=== PATIENT | female | born 1940 | race Caucasian/White ===

== ENCOUNTER 2017-12-28 17:10 | Emergency (ER) | payer MEDICARE ==
[2017-12-28 17:44] VITALS: BP 167/53
[2017-12-28] MEDS ORDERED: Acetaminophen TAB* 325 MG PO ONE (17:57)
--- NOTE | 2017-12-28 18:01 | UC ---
Nausea/Vomiting/Diarrhea HPI - HPI Summary HPI Summary: Patient complains of burning with urination, bilateral lower abdominal pain starting last night. Denies fever, cough, sore throat, CP, SOB, N/V/D, vaginal symptoms, back pain. Medical history is HTN, DM, hypothyroid. - History of Current Complaint Chief Complaint: UCGU Stated Complaint: BLADDER PAIN Time Seen by Provider: 12/28/17 17:50 Hx Obtained From: Patient Onset/Duration: Gradual Onset Severity Initially: Moderate Severity Currently: Moderate Pain Intensity: 8 Pain Scale Used: 0-10 Numeric Location: Discrete At: RLQ, Discrete At: LLQ, Suprapubic Character: Dull Aggravating Factor(s): Nothing Alleviating Factor(s): Nothing Nausea/Vomiting Presence: None Diarrhea Presence: No - Allergies/Home Medications Allergies/Adverse Reactions: Allergies Allergy/AdvReac Type Severity Reaction Status Date / Time Penicillins Allergy Hives Verified 12/28/17 17:45 propoxyphene [From Darvon] Allergy Hives Verified 12/28/17 17:45 tape Allergy Rash Uncoded 12/28/17 17:45 Home Medications: Home Medications Insulin ISOPH/REG 70/30 (*) [HumuLIN 70/30 (*)] 0 units SUBCUT 0800,1700 [History Confirmed 12/28/17] Levothyroxine TAB* [Synthroid TAB*] 75 mcg PO 0800 12/28/17 [History Confirmed 12/28/17] Losartan/Hydrochlorothiazide [Losartan Potassium/Hydroc 100-25 mg] 1 tab PO DAILY 12/28/17 [History Confirmed 12/28/17] Multivitamin [Multivitamins] 1 cap PO DAILY 12/28/17 [History Confirmed 12/28/17 ] amLODIPine TAB* [Norvasc 5 mg TAB*] 10 mg PO DAILY 12/28/17 [History Confirmed 12/28/17] PMH/Surg Hx/FS Hx/Imm Hx Previously Healthy: Yes Endocrine History: Diabetes, Thyroid Disease, Hypothyroidism - Surgical History Surgical History: Yes Surgery Procedure, Year, and Place: titanium plate in neck - Family History Known Family History: Positive: None - Social History Alcohol Use: None Substance Use Type: None Smoking Status (MU): Never Smoked Tobacco Review of Systems Constitutional: Chills Skin: Negative Eyes: Negative ENT: Negative Respiratory: Negative Cardiovascular: Negative Gastrointestinal: Abdominal Pain Genitourinary: Dysuria Motor: Negative Neurovascular: Negative Musculoskeletal: Negative Neurological: Headache Psychological: Negative Is Patient Immunocompromised?: No All Other Systems Reviewed And Are Negative: Yes Physical Exam - Summary Physical Exam Summary: Tenderness to palpation in lower abdomen bilateral laterally and suprapubically. Abdominal exam otherwise unremarkable. Triage Information Reviewed: Yes Appearance: Well-Appearing Vital Signs: Initial Vital Signs Temp 97.8 F 12/28/17 17:39 Pulse 78 12/28/17 17:39 Resp 16 12/28/17 17:39 BP 167/53 12/28/17 17:39 Pulse Ox 96 12/28/17 17:39 Vital Signs Reviewed: Yes Eye Exam: Normal Neck exam: Normal Respiratory Exam: Normal Cardiovascular Exam: Normal Abdominal Exam: Normal Musculoskeletal Exam: Normal Neurological Exam: Normal Psychological Exam: Normal Skin Exam: Normal Naus/Vom/Diarrhea Course/Dx - Course Course Of Treatment: Patient complains of burning with urination, bilateral lower abdominal pain starting last night. Denies fever, cough, sore throat, CP , SOB, N/V/D, vaginal symptoms, back pain. Medical history is HTN, DM, hypothyroid. Tenderness to palpation in lower abdomen bilateral laterally and suprapubically. Abdominal exam otherwise unremarkable. Vital signs normal. UA not definitive. Symptomatic UTI. Started on Bactrim here in [facility]. Rx for same - Differential Dx/Diagnosis Provider Diagnoses: uti Is Visit Related: No Condition At Discharge: Stable Discharge - Sign-Out/Discharge Documenting (check all that apply): Patient Departure All imaging exams completed and their final reports reviewed: No Studies - Discharge Plan Condition: Stable Disposition: HOME Prescriptions: Ciprofloxacin HCl [Cipro] 500 mg PO BID 10 Days #20 tablet Patient Education Materials: Urinary Tract Infection in Women (DC) Referrals: Diaz Stokes MD [Primary Care Provider] - Additional Instructions: Take antibiotics as directed. Follow-up with primary care. - Billing Disposition and Condition Condition: STABLE Disposition: Home - Attestation Statements Provider Attestation: Per institutional requirements, I have reviewed the chart, however, I was not consulted specifically or made aware of this patient by the midlevel provider. I did not personally evaluate, interact with , or disposition this patient.
[2017-12-28] MEDS ORDERED: Ciprofloxacin TAB* 500 MG PO ONE (18:17)
== END 2017-12-28 18:28 | disposition home or self-care (01) ==
LOC: UCEAST 17:10
DX: N39.0 Urinary tract infection, site not specified (principal); E11.9 Type 2 diabetes mellitus without complications; Z79.4 Long term (current) use of insulin; E03.9 Hypothyroidism, unspecified; Z88.5 Allergy status to narcotic agent; Z88.0 Allergy status to penicillin; Z91.048 Other nonmedicinal substance allergy status
CPT/HCPCS: 81003; 87077; 87086; 99212; A9270-GY; G0463

== ENCOUNTER 2018-12-30 08:53 | Inpatient (IN) | payer MEDICARE ==
--- OUTSIDE RECORDS SUMMARY | 2018-12-30 09:07 | XMS REPORT | Summary of Care ---
:1940 Author Organization [facility] Address [address] [facility] [place] [address] Care Team Providers Name Role Phone Diaz Stokes MD Primary Care Provider Rashid Francois MD Primary Lithograph Press Feeder/Java Developer With Security Clearance Theodore Lomeli MD Unavailable Tonja De La Vega Unavailable Reason for Visit Reason Comments Urinary Tract Infection pt presents for possible UTI, started sun/mon, discolored, dark yellow with odor, no burning, no frequency. Cough pt presents for cough since last thursday, is weak and chills. possible fever. Encounter Details Date Type Department Care Team Description 12/21/2018 Office Visit [facility] Jay Velazquez MD Cough (Primary Dx); Practice [address] [facility] Fever, unspecified fever cause [address] [place] [address] [place] [address] [phone] Allergies Active Allergy Reactions Severity Noted Date Comments Clarithromycin Other 05/07/2009 Tongue swelling and mouth sores. Demerol Hives 12/06/2014 Atorvastatin Calcium Other 09/15/2005 MUSCLE PROBLEMS Opioid Analgesics 07/08/2004 Penicillins 07/08/2004 Tegaderm Other 09/15/2005 ITCHING Tricor Other Medium 04/02/2007 myalgias Hydrocodone-Acetaminophen GI Reaction 09/15/2005 STOMACH ACHE documented as of this encounter (statuses as of 12/21/2018) Medications Medication Sig Dispensed Refills Start Date End Date Status daily vitamin PO TABS Take 1 Tab by 0 Active mouth DAILY. meclizine (ANTIVERT) 25 Take 1 Tab by 50 Tab 1 10/13/2017 Active MG Oral TabIndications: mouth THREE TIMES Benign paroxysmal DAILY NEEDED positional vertigo, for unspecified laterality dizziness/vertigo . loratadine (CLARITIN) Take 10 mg by 0 Active 10 MG Oral Tab mouth DAILY. Glucose Blood (ONE 1 Strip by In 200 Strip 5 09/24/2018 Active TOUCH ULTRA TEST Vitro route TWICE STRIPS) In Vitro Strip DAILY. NPH insulin, Inject 81 Units 3 Vial 5 09/28/2018 Active INTERMEDIATE - Acting, beneath the skin (HUMULIN N) 100 UNIT/ML DIRECTED. 45 Subcutaneous units in am and SuspensionIndications: 36 in pm Type 2 diabetes mellitus without complication, without long-term current use of insulin ([facility]) REGULAR insulin, Inject 16 Units 3 Vial 3 09/28/2018 Active SHORT-Acting, (HUMULIN beneath the skin R) 100 UNIT/ML TWO TIMES DAILY Injection BEFORE MEALS. SolutionIndications: Type 2 diabetes mellitus without complication, without long-term current use of insulin ([facility]) metFORMIN (GLUCOPHAGE) Take 1 Tab by 60 Tab 5 09/28/2018 Active 500 MG Oral mouth TWICE TabIndications: Type 2 DAILY. diabetes mellitus without complication, without long-term current use of insulin ([facility]) pravastatin (PRAVACHOL) Take 40 mg by 90 Tab 3 09/28/2018 Active 40 MG Oral mouth DAILY. TabIndications: Mixed hyperlipidemia metoprolol succinate Take 1 Tab by 90 Tab 3 09/28/2018 Active (TOPROL XL) 50 MG Oral mouth DAILY. Take TABLET SR 24 1 tab daily HRIndications: Essential hypertension, benign amLodipine (NORVASC) 10 Take 1 Tab by 90 Tab 3 09/28/2018 Active MG Oral TabIndications: mouth DAILY. Essential hypertension, benign Losartan Potassium-HCTZ Take 1 Tab by 90 Tab 3 10/12/2018 Active 100-25 MG Oral Tab mouth DAILY. levothyroxine Take 1 Tab by 90 Tab 3 10/12/2018 Active (SYNTHROID) 75 MCG Oral mouth BEFORE Tab BREAKFAST. Insulin Syringe-Needle 1 Device by 200 Each 5 10/29/2018 Active U-100 (RELION INSULIN Injection route SYRINGE) 31G X 15/64" 1 THREE TIMES ML Does not apply Misc DAILY. levofloxacin (LEVAQUIN) Take 1 Tab by 7 Tab 0 12/21/2018 Active 500 MG Oral Tab mouth DAILY 0700 on Empty Stomach. documented as of this encounter (statuses as of 12/21/2018) Active Problems Problem Noted Date Poorly controlled diabetes mellitus 08/19/2018 Diabetes mellitus due to underlying condition with hyperosmolarity without coma, without long-term current use of insulin Tear of right rotator cuff 04/04/2016 Pain in right upper arm 02/18/2016 Ankle pain, right 05/19/2013 Osteopenia 04/15/2011 Overview: Bone density scan positive left hip 2007 Bone density scan osteopenia 2011 Osteoarthritis 05/27/2007 Overview: Bilateral hands Hypothyroidism 05/27/2007 Carpal tunnel syndrome 05/27/2007 Overview: bilateral Spinal stenosis in cervical region 05/27/2007 Overview: MRI 11/30/2003 cervical spine limited because of a metallic artifact. There is definite evidence of cord compression. Central spinal canal stenosis is possible with possible central canal impingment. Irritable bowel syndrome 05/27/2007 non cardiac chest pain 05/27/2007 Overview: False positive stress echocardiogram 2005 and normal cardiac cath 2005 Obesity 05/27/2007 Overview: This patient's BMI has been calculated and is above average, and BMI management plan is completed. General patient education discussion including: weight loss link to reduction of risk factors for cardiac and other diseases Hemorrhoids, internal 05/27/2007 Diabetes mellitus 04/02/2007 Overview: Insulin dependent with dietary noncompliance. Seeing Dr. Gracia on humulin N and R She has yearly eye exam with Dr. Francois Essential hypertension, benign 04/02/2007 Mixed hyperlipidemia 04/02/2007 documented as of this encounter (statuses as of 12/21/2018) Immunizations Name Administration Dates Next Due PNEUMOCOCCAL POLYSACCHARIDE VACCINE 01/08/2007 documented as of this encounter Social History Tobacco Use Types Packs/Day Years Used Date Never Smoker Smokeless Tobacco: Never Used Alcohol Use Drinks/Week oz/Week Comments No 0 Standard drinks or equivalent 0.0 Social Isolation Answer Date Recorded In a typical week, how many times do you Three times a week 08/02/2018 talk on the phone with family, friends, or neighbors? How often do you get together with friends Three times a week 08/02/2018 or relatives? How often do you attend rastafarian or sikhism More than 4 times per year 2018 services? Do you belong to any clubs or organizations Yes 08/02/2018 such as rastafarian groups, unions, fraternal or athletic groups, or school groups? How often do you attend meetings of the 1 to 4 times per year 08/02/2018 clubs or organizations you belong to? Are you now , , , 08/02/2018 , never or living with a partner? Physical Activity Answer Date Recorded On average, how many days per week do you engage in moderate to 0 days 2018 strenuous exercise (like walking fast, running, jogging, dancing, swimming, biking, or other activities that cause a light or heavy sweat)? On average, how many minutes do you engage in exercise at this 0 min 2018 level? Stress Answer Date Recorded Do you feel stress - tense, restless, nervous, or anxious, Not at all 2018 or unable to sleep at night because your mind is troubled all the time - these days? Financial Resource Strain Answer Date Recorded How hard is it for you to pay for the very basics like Not hard at all 2018 food, housing, medical care, and heating? Intimate Partner Violence Answer Date Recorded Within the last year, have you been afraid of your partner or No 08/02/2018 ex-partner? Within the last year, have you been humiliated or emotionally No 08/02/2018 abused in other ways by your partner or ex-partner? Within the last year, have you been kicked, hit, slapped, or No 08/02/2018 otherwise physically hurt by your partner or ex-partner? Within the last year, have you been raped or forced to have any No 08/02/2018 kind of sexual activity by your partner or ex-partner? Food Insecurity Answer Date Recorded Within the past 12 months, you worried that your food would Never true 2018 run out before you got money to buy more. Within the past 12 months, the food you bought just didn't Never true 2018 last and you didn't have money to get more. Transportation Needs Answer Date Recorded In the past 12 months, has lack of transportation kept you from No 08/02/2018 medical appointments or from getting medications? In the past 12 months, has lack of transportation kept you from No 08/02/2018 meetings, work, or getting things needed for daily living? Sex Assigned at Date Recorded Not on file Job Start Date Occupation Industry Not on file Not on file Not on file Travel History Travel Start Travel End No recent travel history available. documented as of this encounter Last Filed Vital Signs Vital Sign Reading Time Taken Comments Blood Pressure 110/58 12/21/2018 3:55 PM EDT Pulse 70 12/21/2018 3:55 PM EDT Temperature 37.9 12/21/2018 3:55 PM C (100.2 EDT F) Respiratory Rate - - Oxygen Saturation 99% 12/21/2018 3:55 PM EDT Inhaled Oxygen Concentration - - Weight 85.9 kg (189 lb 6.4 oz) 12/21/2018 3:55 PM EDT Height 162.6 cm (5' 4") 12/21/2018 3:55 PM EDT Body Mass Index 32.51 12/21/2018 3:55 PM EDT documented in this encounter Progress Notes Jay Velazquez MD - 12/21/2018 3:40 PM EDT PATIENT: Madhuri Mcallister : 1940 DATE OF SERVICE: 12/21/2018 CHIEF COMPLAINT: Chief Complaint Patient presents with Urinary Tract Infection pt presents for possible UTI, started thu/mon, discolored, dark yellow with odor, no burning, no frequency. Cough pt presents for cough since last thursday, is weak and chills. possible fever. Subjective HISTORY OF PRESENT ILLNESS: Madhuri Mcallister is a 78-y.o. female. Began not feeling well 5 days ago. Began with cough, PND, clear mucus , head congested, cough also clear. Fever 2 days later, chilled Urine symptoms began about same time as the fever , darker despite drinking a lot. No dysuria , nofrequency, some back pain , no nausea. Past Medical History: Diagnosis Date Carpal tunnel syndrome 05/27/2007 bilateral Diabetes mellitus (HCC) Hemorrhoids, internal 05/27/2007 Hypertension Hypothyroidism 05/27/2007 Irritable bowel syndrome 05/27/2007 non cardiac chest pain 05/27/2007 Obesity 05/27/2007 Osteoarthritis 05/27/2007 Bilateral hands Postmenopausal Special screening for malignant neoplasms, colon 06/10/2004 colonoscopy - polyp excision, internal hemorrhoids Spinal stenosis in cervical region 05/27/2007 MRI 11/30/2003 cervical spine limited because of a metallic artifact. There is definite evidence of cord compression. Central spinal canal stenosis is possible with possible central canal impingment. Family History Problem Relation Age of Onset Heart Mother No Known Problems Sister No Known Problems Daughter No Known Problems Sister Lung Cancer Brother No Known Problems Brother No Known Problems Son Other Medical Illness Son Leg amputation from MVA Current Outpatient Medications Medication Sig amLodipine (NORVASC) 10 MG Oral Tab Take 1 Tab by mouth DAILY. daily vitamin PO TABS Take 1 Tab by mouth DAILY. Glucose Blood (ONE TOUCH ULTRA TEST STRIPS) In Vitro Strip 1 Strip by In Vitro route TWICE DAILY. Insulin Syringe-Needle U-100 (RELION INSULIN SYRINGE) 31G X 15/64" 1 ML Does not apply Misc 1Device by Injection route THREE TIMES DAILY. levothyroxine (SYNTHROID) 75 MCG Oral Tab Take 1 Tab by mouth BEFORE BREAKFAST. loratadine (CLARITIN) 10 MG Oral Tab Take 10 mg by mouth DAILY. Losartan Potassium-HCTZ 100-25 MG Oral Tab Take 1 Tab by mouth DAILY. meclizine (ANTIVERT) 25 MG Oral Tab Take 1 Tab by mouth THREE TIMES DAILY NEEDED for dizziness/vertigo. metFORMIN (GLUCOPHAGE) 500 MG Oral Tab Take 1 Tab by mouth TWICE DAILY. metoprolol succinate (TOPROL XL) 50 MG Oral TABLET SR 24 HR Take 1 Tab by mouth DAILY. Take 1tab daily NPH insulin, INTERMEDIATE - Acting, (HUMULIN N) 100 UNIT/ML Subcutaneous Suspension Inject 81Units beneath the skin DIRECTED. 45 units in am and 36 in pm pravastatin (PRAVACHOL) 40 MG Oral Tab Take 40 mg by mouth DAILY. REGULAR insulin, SHORT-Acting, (HUMULIN R) 100 UNIT/ML Injection Solution Inject 16 Units beneath the skin TWO TIMES DAILY BEFORE MEALS. No current facility-administered medications for this visit. Allergies Allergen Reactions Tricor Other myalgias Biaxin [Clarithromycin] Other Tongue swelling and mouth sores. Demerol Hives Lipitor [Atorvastatin Calcium] Other MUSCLE PROBLEMS Opioid Analgesics Pcn [Penicillins] Tape [Tegaderm] Other ITCHING Vicodin [Hydrocodone-Acetaminophen] GI Reaction STOMACH ACHE Social History Socioeconomic History Marital status: Spouse name: Not on file Number of children: 3 Years of education: Not on file Highest education level: Not on file Occupational History Not on file Social Needs Financial resource strain: Not hard at all Food insecurity: Worry: Never true Inability: Never true Transportation needs: Medical: No Non-medical: No Tobacco Use Smoking status: Never Smoker Smokeless tobacco: Never Used Substance and Sexual Activity Alcohol use: No Alcohol/week: 0.0 standard drinks Drug use: No Sexual activity: Never Lifestyle Physical activity: Days per week: 0 days Minutes per session: 0 min Stress: Not at all Relationships Social connections: Talks on phone: Three times a week Gets together: Three times a week Attends sikhism service: More than 4 times per year Active member of club or organization: Yes Attends meetings of clubs or organizations: 1 to 4 times per year Relationship status: Intimate partner violence: Fear of current or ex partner: No Emotionally abused: No Physically abused: No Forced sexual activity: No Other Topics Concern Back Care Not Asked Bike Helmet Not Asked Blood Transfusions Not Asked Caffeine Concern Not Asked Exercise Yes Comment: had been walking twice a day, 7 days/week until she hurt left foot. Hobby Hazards Not Asked International Travel No Service Not Asked Occupational Exposure Not Asked Seat Belt Yes Self-Exams Not Asked Sleep Concern Not Asked Special Diet Yes Comment: 3 meals per day, two snacks per day, low carbo and low sodium. Stress Concern No Weight Concern Yes Social History Narrative DOES NOT WORK LIVES WITH IN [facility] No regular physical activity 3 adult children, 1 son at age 16 REVIEW OF SYSTEMS: ROS Objective PHYSICAL EXAM: VITALS: BP 110/58 (BP Location: Left arm, Patient Position: Sitting) | Pulse 70 | Temp 100.2 F (37.9 C) | Ht 5' 4" (1.626 m) | Wt 189 lb 6.4 oz ( 85.9 kg) | SpO2 99% | BMI 32.51 kg/mBody mass index is 32.51 kg/m. Physical Exam Constitutional: No distress (in a wheelchair). In a wheelchair HENT: Mouth/Throat: Oropharynx is clear and moist. Neck: Neck supple. Cardiovascular: Normal rate and regular rhythm. Pulmonary/Chest: Effort normal and breath sounds normal. No respiratory distress. Musculoskeletal: She exhibits no edema. No cva tenderness Lymphadenopathy: She has no cervical adenopathy. Vitals reviewed. CXR negative to me UA no sign infection ASSESSMENT / IMPRESSION: ICD-9-CM ICD-10-CM 1. Cough 786.2 R05 2. Fever, unspecified fever cause 780.60 R50.9 XR CHEST 2 VIEW PA AND LATERAL ( STANDARD) CBC WITH DIFFERENTIAL COMPREHENSIVE METABOLIC PANEL Cough with fever 5 days is more than a cold but no source Will treat with levaquin and check labs Plan Call if not better Author: Jay Velazquez MD 12/21/2018 16:09 documented in this encounter Plan of Treatment Date Type Specialty Care Team Description 01/17/2019 Lab Internal Medicine 01/25/2019 Office Visit Family Practice Tonja De La Vega, SIL [address] [place] [address] [phone] 08/10/2019 Chronic Care Management Family Practice Name Type Priority Associated Diagnoses Date/Time XR CHEST 2 VIEW PA AND Imaging Routine Fever, unspecified 12/21/2018 4:35 PM LATERAL (STANDARD) fever cause EDT CBC WITH DIFFERENTIAL Lab Routine Fever, unspecified 12/21/2018 4:24 PM fever cause EDT COMPREHENSIVE METABOLIC Lab Routine Fever, unspecified 12/21/2018 4:24 PM PANEL fever cause EDT Name Type Priority Associated Diagnoses Order Schedule XR CHEST 2 VIEW PA Imaging Routine Fever, unspecified fever Expected: 12/21, AND LATERAL cause Expires: 12/21/2019 (STANDARD) Health Maintenance Due Date Last Done Comments ZOSTER IMMUNIZATION SERIES 02/25/1992 (1 of 2) PNEUMOCOCCAL 65+YRS (1 of 2 01/09/2008 01/08/2007 - PCV13) HEMOGLOBIN A1C 12/26/2018 09/25/2018, 06/25/2018, 10/29/2017, Additional history exists Diabetic Eye Exam 05/20/2019 05/20/2018, 11/16/2017, 11/13/2016, Additional history exists DEPRESSION SCREENING 08/03/2019 08/02/2018, 07/15/2017 FALL RISK ASSESSMENT 08/03/2019 08/02/2018, 08/02/2018 MEDICARE ANNUAL WELLNESS 08/03/2019 08/02/2018, 07/15/2017, VISIT 08/15/2011 COLONOSCOPY SCREENING 08/12/2019 08/11/2014, 08/11/2014, 07/04/2014, Additional history exists FOOT EXAM 09/29/2019 09/28/2018, 09/28/2018, 09/08/2017, Additional history exists OSTEOPOROSIS SCREENING 08/18/2021 08/19/2011, 10/19/2007 HPV IMMUNIZATION SERIES Aged Out No longer eligible based on patient's age to complete this topic MENINGOCOCCAL VACCINE IMM Aged Out No longer eligible based on patient's age to complete this topic documented as of this encounter Goals Goal Patient Goal Associated Recent Patient-Stated? Author Type Problems Progress Blood Pressure Blood Pressure 110/58 No Ceferino, < 140/90 (12/21/2018 SIL Evangelista 3:55 PM EDT) Note: This is an individualized treatment (blood pressure) goal for Madhuri Mcallister: Displayed above (on the left) is your goal for blood pressure control. Your most recent blood pressure is also shown above, on the right. You should try to achieve blood pressures that are lower than your goal listed above (on the left). Glycohemoglobin A1c < 7.0 Diabetes 8.2 (09/25/2018 11:01 No Tonja De La Vega FNP AM EDT) Note: This is an individualized treatment (diabetes control, HgbA1C) goal for Madhuri Mcallister: Displayed above is your progress towards your HgbA1C goal. Your goal is shown above (on the left); your most recent HgbA1C is shown on the right. Note that lower numbers are better. Weight loss vs. 18 mo Lifestyle 5.6 (12/21/2018 3:55 PM No Tonja De La Vega FNP max (lbs) >= 10 EDT) Note: This is an individualized lifestyle goal for Madhuri Mcallister: Your body mass index (BMI) is more than 30. You should lose weight. A reasonable starting goal is to lose 10 pounds. Displayed above is how many pounds you have lost thus far towards your 10 pound weight loss goal. Keep immunizations current Lifestyle No Tonja De La Vega FNP Note: This is an individualized lifestyle goal for Madhuri L Riihinen: Please be sure to keep up-to-date on recommended immunizations. For example, this would include a yearly influenza vaccine. Immunization status can be seen by looking at the Health Maintenance sections of your [facility], Plan of Care, and any After Visit Summaries. Take all prescribed medications as Self-management No Tonja De La Vega FNP directed Note: This is an individualized self-management goal for Madhuri Mcallister: Please take all prescribed medications as directed. 1. Do not skip doses. If you cannot afford your medications, talk with your doctor. 2. Use a pill reminder system such as a pill box if needed. Your pharmacist can help you with this. 3. Contact your Pharmacy 5 days before your medication runs out. If you cannot take your medications for any reasons, talk with your doctor. 4. Please bring all of your medication bottles and inhalers (or a list of all your medications/inhalers) with you to every visit. Potential barriers to meeting all of your care plan goals will continue to be addressed on an ongoing basis. documented as of this encounter Results Not on filedocumented in this encounter Visit Diagnoses Diagnosis Cough - Primary Fever, unspecified fever cause documented in this encounter Insurance Payer Benefit Plan / Subscriber ID Effective Dates Phone Address Type Group UHC MEDICARE [employer] xxxxxxxxx 2011-Present [facility] ADVANTAGE MEDICARE ADVANTAGE Guarantor Name Account Type Relation to Date of Phone Billing Patient Address Madhuri Mcallister Personal/Family 1940 [address] (Home) [place] [phone] [id number] (Work) documented as of this encounter
--- OUTSIDE RECORDS SUMMARY | 2018-12-30 09:07 | XMS REPORT | Summary of Care ---
:1940 Author Organization [facility] Address [address] [place] [address] Care Team Providers Name Role Phone Diaz Stokes MD Primary Care Provider Rashid Francois MD Primary Receptionist Scheduler/Medical Information Officer Theodore Lomeli MD Unavailable Tonja De La Vega SPECIAL NEEDS NANNY Unavailable Reason for Visit Reason Comments Check Up pt said she is very weak, pt is also having SOB Encounter Details Date Type Department Care Team Description 12/30/2018 Office Visit [facility] Tonja De La Vega Weakness (Primary Dx); Practice SPECIAL NEEDS NANNY Abnormal liver function; [address] Diabetes mellitus without complication (HCC); [place] [address] [place] [address] Essential hypertension, benign [phone] Allergies Active Allergy Reactions Severity Noted Date Comments Clarithromycin Other 05/07/2009 Tongue swelling and mouth sores. Demerol Hives 12/06/2014 Atorvastatin Calcium Other 09/15/2005 MUSCLE PROBLEMS Opioid Analgesics 07/08/2004 Penicillins 07/08/2004 Tegaderm Other 09/15/2005 ITCHING Tricor Other Medium 04/02/2007 myalgias Hydrocodone-Acetaminophen GI Reaction 09/15/2005 STOMACH ACHE documented as of this encounter (statuses as of 12/30/2018) Medications Medication Sig Dispensed Refills Start Date End Date Status daily vitamin PO Take 1 Tab by 0 Active TABS mouth DAILY. meclizine (ANTIVERT) Take 1 Tab by 50 Tab 1 10/13/2017 Active 25 MG Oral mouth THREE TabIndications: TIMES DAILY Benign paroxysmal NEEDED for positional vertigo, dizziness/verti unspecified go. laterality loratadine Take 10 mg by 0 Active (CLARITIN) 10 MG mouth DAILY. Oral Tab Glucose Blood (ONE 1 Strip by In 200 Strip 5 09/24/2018 Active TOUCH ULTRA TEST Vitro route STRIPS) In Vitro TWICE DAILY. Strip NPH insulin, Inject 81 Units 3 Vial 5 09/28/2018 Active INTERMEDIATE - beneath the Acting, (HUMULIN N) skin 100 UNIT/ML DIRECTED. 45 Subcutaneous units in am and SuspensionIndication 36 in pm s: Type 2 diabetes mellitus without complication, without long-term current use of insulin (HCC) REGULAR insulin, Inject 16 Units 3 Vial 3 09/28/2018 Active SHORT-Acting, beneath the (HUMULIN R) 100 skin TWO TIMES UNIT/ML Injection DAILY BEFORE SolutionIndications: MEALS. Type 2 diabetes mellitus without complication, without long-term current use of insulin ([facility]) metFORMIN Take 1 Tab by 60 Tab 5 09/28/2018 Active (GLUCOPHAGE) 500 MG mouth TWICE Oral TabIndications: DAILY. Type 2 diabetes mellitus without complication, without long-term current use of insulin (HCC) pravastatin Take 40 mg by 90 Tab 3 09/28/2018 Active (PRAVACHOL) 40 MG mouth DAILY. Oral TabIndications: Mixed hyperlipidemia metoprolol succinate Take 1 Tab by 90 Tab 3 09/28/2018 Active (TOPROL XL) 50 MG mouth DAILY. Oral TABLET SR 24 Take 1 tab HRIndications: daily Essential hypertension, benign amLodipine (NORVASC) Take 1 Tab by 90 Tab 3 09/28/2018 Active 10 MG Oral mouth DAILY. TabIndications: Essential hypertension, benign Losartan Take 1 Tab by 90 Tab 3 10/12/2018 Active Potassium-HCTZ mouth DAILY. 100-25 MG Oral Tab levothyroxine Take 1 Tab by 90 Tab 3 10/12/2018 Active (SYNTHROID) 75 MCG mouth BEFORE Oral Tab BREAKFAST. Insulin 1 Device by 200 Each 5 10/29/2018 Active Syringe-Needle U-100 Injection route (RELION INSULIN THREE TIMES SYRINGE) 31G X DAILY. " 1 ML Does not apply Misc levofloxacin Take 1 Tab by 7 Tab 0 12/21/2018 Discontinued (LEVAQUIN) 500 MG mouth DAILY 9 Oral Tab 0700 on Empty Stomach. documented as of this encounter (statuses as of 12/30/2018) Active Problems Problem Noted Date Poorly controlled diabetes mellitus 08/19/2018 Diabetes mellitus due to underlying condition with hyperosmolarity without coma, without long-term current use of insulin Tear of right rotator cuff 04/04/2016 Pain in right upper arm 02/18/2016 Ankle pain, right 05/19/2013 Osteopenia 04/15/2011 Overview: Bone density scan positive left hip 2007 Bone density scan osteopenia 2012 Osteoarthritis 05/27/2007 Overview: Bilateral hands Hypothyroidism 05/27/2007 [...] as of this encounter (statuses as of 12/30/2018) Immunizations Name Administration Dates Next Due PNEUMOCOCCAL [...] or relatives? How often do you attend christianity or synagogue More than 4 times per year 2018 services? Do you belong to any clubs or organizations Yes 08/02/2018 such as christianity groups, unions, fraternal or athletic groups, or [...] Sign Reading Time Taken Comments Blood Pressure 132/46 12/30/2018 7:41 AM EDT Pulse 65 12/30/2018 7:41 AM EDT Temperature 36.4 12/30/2018 7:41 AM EDT C (97.6 F) Respiratory Rate - - Oxygen Saturation 98% 12/30/2018 7:41 AM EDT Inhaled Oxygen Concentration - - Weight 86.2 kg (190 lb) 12/30/2018 7:41 AM EDT Height 162.6 cm (5' 4") 12/30/2018 7:41 AM EDT Body Mass Index 32.61 12/30/2018 7:41 AM EDT documented in this encounter Patient Instructions Patient InstructionsTonja De La Vega FNP - 12/30/2018 7:40 AM EDTStop pravastatin for now Stop levaquin antibiotic No motrin for now. To ER for evaluation and lab work and testing as to why extreme sudden weakness. documented in this encounter Progress Notes Tonja De La Vega FNP - 12/30/2018 7:40 AM EDT PATIENT: Madhuri Mcallister : 1940 DATE OF SERVICE: 12/30/2018 Chief Complaint Patient presents with Check Up pt said she is very weak, pt is also having SOB SUBJECTIVE: Madhuri Mcallister is a 78-y.o. female who is here with extreme sudden weakness over last 3-4 days. She is unable to walk and go up stairs and fears falling. She thought it was due to takinglevaquin for UTI. She took for 3 days and stopped but weakness worsening. She had recent lab work showing drop and H&H and abnormal liver function. She takes motrin but only occasionally. Previous hematocrit 42 and now 35. She sees Dr. Gracia for diabetes. No fingerstick today. Yesterday was 220. The patient is taking hypertensive medications compliantly without side effects. Denies chest pain,worsened edema, or TIA's. No dizziness. No palpitations. The patient denies abdominal or flank pain, anorexia, nausea or vomiting, dysphagia, change in bowelhabits or black or bloody stools or weight loss. Patient Active Problem List Diagnosis Date Noted Poorly controlled diabetes mellitus ([facility]) 08/19/2018 Diabetes mellitus due to underlying condition with hyperosmolarity without coma, without long-term current use of insulin ([facility]) 08/19/2018 Tear of right rotator cuff 04/04/2016 Pain in right upper arm 02/18/2016 Ankle pain, right 05/19/2013 Osteopenia 04/15/2011 Bone density scan positive left hip 2007 Bone density scan osteopenia 2011 Osteoarthritis 05/27/2007 Bilateral hands Hypothyroidism 05/27/2007 Carpal tunnel syndrome 05/27/2007 bilateral Spinal stenosis in cervical region 05/27/2007 MRI 11/30/2003 cervical spine limited because of a metallic artifact. There is definite evidence of cord compression. Central spinal canal stenosis is possible with possible central canal impingment. Irritable bowel syndrome 05/27/2007 non cardiac chest pain 05/27/2007 False positive stress echocardiogram 2005 and normal cardiac cath 2006 Obesity 05/27/2007 This patient's BMI has been calculated and is above average, and BMI management plan is completed. General patient education discussion including: weight loss link to reduction of risk factors for cardiac and other diseases Hemorrhoids, internal 05/27/2007 Diabetes mellitus (HCC) 04/02/2007 Insulin dependent with dietary noncompliance. Seeing Dr. Gracia on humulin N and R She has yearly eye exam with Dr. Francois Essential hypertension, benign 04/02/2007 Mixed hyperlipidemia 04/02/2007 Current Outpatient Medications Medication Sig amLodipine (NORVASC) [...] No current facility-administered medications for this visit. OBJECTIVE: BP 132/46 (BP Location: Right arm, Patient Position: Sitting) | Pulse 65 | Temp 97.6 F (36.4 C) | Ht 5' 4" (1.626 m) | Wt 190 lb ( 86.2 kg) | SpO2 98% | BMI 32.61 kg/m She is alert but appears ill. Very pale. Chest is clear, no wheezing or rales. Normal symmetric air entry throughout both lung serna. Heart RRR. Abdomen obese, soft and nontender. Lab Results Component Value Date GLYCO 8.2 (H) 09/25/2018 Lab Results Component Value Date NA 135 12/21/2018 K 4.7 12/21/2018 CL 100 12/21/2018 CO2 28 12/21/2018 GLUCOSE 349 (H) 12/21/2018 BUN 22 (H) 12/21/2018 CREATININE 0.7 12/21/2018 CALCIUM 9.5 12/21/2018 TP 6.3 12/21/2018 ALBUMIN 3.3 (L) 12/21/2018 AST 62 (H) 12/21/2018 ALT 64 (H) 12/21/2018 ALK 222 (H) 12/21/2018 TBILI 1.7 (H) 12/21/2018 EGFR >60 12/21/2018 Lab Results Component Value Date WBC 5.80 12/21/2018 HGB 11.2 12/21/2018 HCT 35.0 12/21/2018 PLAT 92 (L) 12/21/2018 Previous H&H 13.9/42 Lab Results Component Value Date TSH 1.58 06/25/2018 BP Readings from Last 3 Encounters: 12/30/18 132/46 12/21/18 110/58 11/25/18 134/54 Wt Readings from Last 3 Encounters: 12/30/18 190 lb (86.2 kg) 12/21/18 189 lb 6.4 oz (85.9 kg) 11/25/18 191 lb (86.6 kg) ASSESSMENT: ICD-9-CM ICD-10-CM 1. Weakness 780.79 R53.1 2. Abnormal liver function 794.8 R94.5 3. Diabetes mellitus without complication (HCC) 250.00 E11.9 4. Essential hypertension, benign 401.1 I10 She is newly weak and concern with drop in H&H and abnormal liver function. ER evaluation advised. Patient Instructions Stop pravastatin for now Stop levaquin antibiotic No motrin for now. To ER for evaluation and lab work and testing as to why extreme sudden weakness. Author: SIL Garcia 12/30/2018 08:16 documented in this encounter Plan of Treatment Date Type Specialty Care Team Description 01/05/2019 Office Visit Internal Medicine Diaz Stokes MD [address] [place] [address] [phone] 01/17/2019 Lab Internal Medicine 01/25/2019 Office Visit Family Practice Tonja De La Vega FNP [address] [place] [address] 08/10/2019 Chronic Care Management Family Practice Health Maintenance Due Date Last Done Comments [...] Type Problems Progress Blood Pressure Blood Pressure 132/46 No Ceferino, < 140/90 (12/30/2018 SIL Evangelista 7:41 AM EDT) Note: This is an individualized [...] A1c < 7.0 Diabetes 8.2 (09/25/2018 11:01 Tonja Ramos FNP AM EDT) Note: This is an individualized treatment (diabetes control, HgbA1C) goal for Madhuri Mcallister: Displayed above is your progress towards your HgbA1C goal. Your goal is shown above (on the left); your most recent HgbA1C is shown on the right. Note that lower numbers are better. Weight loss vs. 18 mo Lifestyle 5 (12/30/2018 7:41 AM No Tonja De La Vega FNP max [...] an individualized lifestyle goal for Madhuri Mcallister: Please be sure to keep up-to-date on [...] filedocumented in this encounter Visit Diagnoses Diagnosis Weakness - Primary Other malaise and fatigue Abnormal liver function Unspecified disorder of liver Diabetes mellitus without complication (HCC) Type II or unspecified type diabetes mellitus without mention of complication, not stated as uncontrolled Essential hypertension, benign documented in this encounter Insurance Payer Benefit Plan / Subscriber ID Effective Dates Phone Address Type Group UHC MEDICARE [employer] xxxxxxxxx 2011-Present [facility] [employer] MEDICARE ADVANTAGE Guarantor Name Account Type Relation to Date of Phone Billing Patient Address Madhuri Mcallister Personal/Family 1940 [facility] [address] (Home) [place] [phone] (Work) documented as of this encounter
[2018-12-30 09:47] LABS: Hematocrit 26 % (35-47); Hemoglobin 8.7 g/dL (12.0-16.0); Mean Corpuscular HGB Conc 34 g/dL (31-36); Mean Corpuscular Hemoglobin 26 pg (27-31); Mean Corpuscular Volume 77 fL (80-97); Mean Platelet Volume 9.8 fL (7.4-10.4); Platelet Count 111 10^3/uL (150-450); Red Blood Count 3.35 10^6 /uL (3.70-4.87); Red Cell Distribution Width 18 % (10-15); White Blood Count 5.7 10^3/uL (3.5-10.8)
[2018-12-30 10:05] LABS: ABS Lymphocytes 0.6 10^3/ul (1.0-4.8); ABS Monocytes 1.1 10^3/ul (0-0.8); ABS Neutrophils 3.9 10^3/ul (1.5-7.7); Eosinophil % 0.4 %; Lymphocyte % 11.3 %; Nucleated Red Blood Cells % 0.2
[2018-12-30 10:10] LABS: Albumin 2.9 g/dL (3.2-5.2); Albumin/Globulin Ratio 1.2 (1-3); BUN/Creatinine Ratio 28.9 (8-20); C Reactive Protein 67.67 mg/L (<8.01); Calcium 9.4 mg/dL (8.6-10.3); EGFR African American 80.9 (>60); EGFR Non-African American 66.8 (>60); Globulin 2.5 g/dL (2-4); Potassium 4.5 mmol/L (3.5-5.0); Total Bilirubin 1.5 mg/dL (0.2-1.0); Total Protein 5.4 g/dL (6.4-8.9)
[2018-12-30 10:19] LABS: RBC Parasite Smear Parasites Seen (No Parasite)
[2018-12-30 10:24] LABS: TSH (Thyroid Stimulating Horm) 1.65 mcIU/mL (0.34-5.60)
--- NOTE | 2018-12-30 10:28 | ED ---
Complex/Multi-Sys Presentation - HPI Summary HPI Summary: Pt. is a 78 y.o female who presents to the ER for bilateral leg weakness x 1-2 weeks. Pt. believes her leg weakness is secondary to levaquin she was on for a UTI 3 weeks ago. Pt. denies any falls or injuries. Denies back pain, fever, abd. pain, urinary sxs, CP, SOB, h/a. Sxs are moderate in severity. Pt. notes chronic decreased sensation in legs without change. No current modifying factors. - History Of Current Complaint Chief Complaint: EDWeakness Time Seen by Provider: 12/30/18 09:01 Hx Obtained From: Patient - Allergies/Home Medications Allergies/Adverse Reactions: Allergies Allergy/AdvReac Type Severity Reaction Status Date / Time Penicillins Allergy Hives Verified 12/28/17 17:45 propoxyphene [From Darvon] Allergy Hives Verified 12/28/17 17:45 tape Allergy Rash Uncoded 12/28/17 17:45 Home Medications: Home Medications Insulin NPH Human Isophane [Humulin N Kwikpen] 36 unit SUBCUT BEDTIME 12/30/18 [ History Confirmed 12/30/18] Insulin NPH Human Isophane [Humulin N Kwikpen] 45 unit SUBCUT QAM 12/30/18 [ History Confirmed 12/30/18] Insulin REGULAR(*) 16 units SUBCUT BID AC 12/30/18 [History Confirmed 12/30/18] LoraTADine TAB(NF) [Claritin 10 MG TAB(NF)] 10 mg PO DAILY 12/30/18 [History Confirmed 12/30/18] Losartan/Hydrochlorothiazide [Losartan-Hctz 100-25 mg Tab] 1 each PO DAILY 12/30 [History Confirmed 12/30/18] Meclizine TAB* [Antivert 12.5 TAB*] 25 mg PO TID PRN 12/30/18 [History Confirmed 12/30/18] Metoprolol Succinate XL TAB* [Toprol XL TAB*] 50 mg PO DAILY 12/30/18 [History Confirmed 12/30/18] Pravastatin (NF) [Pravachol (NF)] 40 mg PO DAILY 12/30/18 [History Confirmed 09/12] metFORMIN* [Glucophage 500 MG TAB *] 500 mg PO BID 12/30/18 [History Confirmed 12/30/18] PMH/Surg Hx/FS Hx/Imm Hx Previously Healthy: Yes Endocrine/Hematology History: Reports: Hx Diabetes, Hx Thyroid Disease Cardiovascular History: Reports: Hx Hypertension - Surgical History Surgery Procedure, Year, and Place: titanium plate in neck Infectious Disease History: No Infectious Disease History: Denies: Traveled Outside the [place] in Last 30 Days - Family History Known Family History: Positive: None, Non-Contributory - Social History Occupation: Retired Lives: With Family Alcohol Use: None Substance Use Type: Reports: None Smoking Status (MU): Never Smoked Tobacco Review of Systems Constitutional: Negative Negative: Fever, Chills Positive: Other Negative: Palpitations, Chest Pain Respiratory: Negative Negative: Shortness Of Breath, Cough Gastrointestinal: Negative Negative: Abdominal Pain, Vomiting, Diarrhea Genitourinary: Negative Negative: dysuria Positive: Other - bilateral leg weakness Skin: Negative Positive: Weakness - bilateral leg weakness. Negative: Headache, Paresthesia, Numbness, Syncope All Other Systems Reviewed And Are Negative: Yes Physical Exam Triage Information Reviewed: Yes Vital Signs On Initial Exam: Initial Vitals Temp Pulse Resp BP Pulse Ox 98.7 F 64 18 156/65 99 12/30/18 08:55 12/30/18 08:55 12/30/18 08:55 12/30/18 08:55 12/30/18 08:55 Vital Signs Reviewed: Yes Appearance: Positive: Well-Appearing - Pt. sitting up in bed in NAD. present. Skin: Positive: Warm, Dry Head/Face: Positive: Normal Head/Face Inspection Eyes: Positive: Normal, EOMI Neck: Positive: Supple Respiratory/Lung Sounds: Positive: Clear to Auscultation, Breath Sounds Present Cardiovascular: Positive: Normal, RRR Abdomen Description: Positive: Nontender, Soft Musculoskeletal: Positive: Other - 5/5 strength in bilateral UEs. Mild decrease with dorsiflexion to left foot, otherwise full strength. Able to easily lift and hold both legs off of bed. Neurological: Positive: Normal, Alert, Oriented to Person Place, Time, CN Intact II-III Diagnostics - Vital Signs Vital Signs Temp Pulse Resp BP Pulse Ox 12/30/18 09:14 65 153/77 95 12/30/18 08:55 98.7 F 64 18 156/65 99 - Laboratory Lab Results: Lab Results 12/30/18 12/30/18 Range/Units 09:40 09:40 WBC 5.7 (3.5-10.8) 10^3/uL RBC 3.35 L (3.70-4.87) 10^6 /uL Hgb 8.7 L (12.0-16.0) g/dL Hct 26 L (35-47) % MCV 77 L (80-97) fL MCH 26 L (27-31) pg MCHC 34 (31-36) g/dL RDW 18 H (10-15) % Plt Count 111 L (150-450) 10^3/uL MPV 9.8 (7.4-10.4) fL Neut % (Auto) 68.0 % Lymph % (Auto) 11.3 % Dodge % (Auto) 19.9 % Eos % (Auto) 0.4 % Baso % (Auto) 0.4 % Absolute Neuts (auto) 3.9 (1.5-7.7) 10^3/ul Absolute Lymphs (auto) 0.6 L (1.0-4.8) 10^3/ul Absolute Monos (auto) 1.1 H (0-0.8) 10^3/ul Absolute Eos (auto) 0.0 (0-0.6) 10^3/ul Absolute Basos (auto) 0.0 (0-0.2) 10^3/ul Absolute Nucleated RBC 0.0 10^3/ul Neutrophils % Pending Nucleated RBC % 0.2 Normal RBC Morphology Pending Smear Path Review Pending Sodium 138 (135-145) mmol/L Potassium 4.5 (3.5-5.0) mmol/L Chloride 106 (101-111) mmol/L Carbon Dioxide 27 (22-32) mmol/L Anion Gap 5 (2-11) mmol/L BUN 24 (6-24) mg/dL Creatinine 0.83 (0.51-0.95) mg/dL Est GFR ( Amer) 80.9 (>60) Est GFR (Non-Af Amer) 66.8 (>60) BUN/Creatinine Ratio 28.9 H (8-20) Glucose 158 H (70-100) mg/dL Calcium 9.4 (8.6-10.3) mg/dL Magnesium 2.0 (1.9-2.7) mg/dL Total Bilirubin 1.50 H (0.2-1.0) mg/dL AST 29 (13-39) U/L ALT 32 (7-52) U/L Alkaline Phosphatase 150 H (34-104) U/L C-Reactive Protein 67.67 H (<8.01) mg/L Total Protein 5.4 L (6.4-8.9) g/dL Albumin 2.9 L (3.2-5.2) g/dL Globulin 2.5 (2-4) g/dL Albumin/Globulin Ratio 1.2 (1-3) TSH Pending Blood Parasite Screen Parasites seen A* (No Parasite) Result Diagrams: 12/30/18 09:40 12/30/18 09:40 Lab Statement: Any lab studies that have been ordered have been reviewed, and results considered in the medical decision making process. Complex Multi-Symp Course/Dx Course Of Treatment: Pt. presenting with subjective weakness in legs. Exam is relatively unremarkable. Afebrile with stable VS. Will start with basic labs. CBC shows H and H of 8.7 and 26. Pt. notes she recently had labs at [facility] and hemoglobin was around 11 recently. Bilirubin 1.5, alkphos 150, CRP 67. Parasites noted in RBCs on peripheral smear. Pt. denies recent travel, insect bites, tick bites. She noted she drinks bottled spring water. Case discussed with ID, Dr. Judge, who examined pt. in the ED. He feels pt. most likely has babesiosis. He recommends admission given age and anemia. Pt. started on IV zithromax and atovaquone. Case discussed with Dr. Duval and she accepts pt .for admission. - Diagnoses Provider Diagnoses: Parasitic infection, Anemia Discharge ED - Sign-Out/Discharge Documenting (check all that apply): Patient Departure Patient Received Moderate/Deep Sedation with Procedure: No - Discharge Plan Condition: Stable Disposition: ADMITTED TO [facility] Referrals: Diaz Stokes MD [Primary Care Provider] - - Billing Disposition and Condition Condition: STABLE Disposition: Admitted to [facility]
[2018-12-30 11:12] LABS: Urine Appearance Cloudy; Urine Bilirubin Negative (Negative); Urine Blood Negative (Negative); Urine Color Yellow; Urine Glucose Negative (Negative); Urine Ketones Negative (Negative); Urine Nitrite Negative (Negative); Urine Protein Negative (Negative); Urine Specific Gravity 1.013 (1.010-1.030); Urine Urobilinogen Positive (Negative)
[2018-12-30] MEDS ORDERED: Azithromycin 500 mg/250 ml NS 500 MG/250 ML BAG IVPB ONE (11:24)
[2018-12-30] MEDS ORDERED: Atovaquone* 750 MG/5 ML UDC PO ONE (11:24)
[2018-12-30 11:30] LABS: Polychromasia 2+
[2018-12-30] MEDS ORDERED: Magnesium Hydroxide LIQ* 30 ML UDC PO PRN (12:39)
[2018-12-30] MEDS ORDERED: Acetaminophen TAB* 325 MG PO PRN (12:39)
--- NOTE | 2018-12-30 12:45 | CONS ---
CONSULTATION REPORT: DATE OF CONSULT: 12/30/18 REQUESTING PROVIDER: YUSUF Kimball CONSULTING SERVICE: Infectious Disease. REASON FOR CONSULT: Anemia, parasitemia. IMPRESSION: 1. Two weeks of progressive malaise, dyspnea on exertion. Hemoglobin today is 8.7; on 11/13/18, it was 11. She does have parasites in the red cell as identified by pathologist and as she has not had travel, this makes babesiosis the most likely diagnosis. 2. Thrombocytopenia related to the underlying infection. 3. Penicillin allergy. 4. Diabetes, on insulin. RECOMMENDATIONS: Azithromycin 500 mg IV daily, atovaquone 750 mg by mouth twice a day. As she has n ot had splenectomy, chemotherapy, or AIDS, her only immunocompromise is from diabetes. I think she should do well with this regimen. We will check percent parasitemia as well. HISTORY OF PRESENT ILLNESS: A 78-year-old woman who has had about 2 to 3 weeks of worsening malaise and dyspnea on exertion. It started mid November. She was seen in Dr. Adams' office. Treated with L evaquin for possible UTI. I reviewed her records from his office and at the end of November she had a hemoglobin of 11 with a transaminitis and thrombocytopenia. She was seen there today, but directed t o the emergency room. She has had increasing dyspnea on exertion. No chest pain. Some malaise that has been progressive. Appetite has been off. Occasional sweats. She had fever off and on. She sp ent a little bit time outdoors and has some outdoor dogs, has not found any ticks to speak of. Here, she was found to have a hemoglobin of 8.7 and platelets 111. The lab found parasites in red cells a nd notified the ER of that. She is not febrile here. She is normotensive. She has not had any bloo d in her stool or black tarry stools. PAST MEDICAL HISTORY: 1. Insulin-dependent diabetes. 2. Hypertension. 3. Hypothyroidism. ALLERGIES: PENICILLIN caused hives, PROPOXYPHENE caused hives, TAPE causes rash. FAMILY HISTORY: No recurrent infections or tuberculosis. SOCIAL HISTORY: She lives with her in [place]; they have a couple of dogs. She spends a fair amount of time out in the yard, especially earlier in the summer when she felt better. She is a nonsmoker. REVIEW OF SYSTEMS: All negative except as noted above to 14-point review. PHYSICAL EXAM: Vital Signs: Temperature 37, heart rate 65, respiratory rate 18, blood pressure 153/ 77, oxygen saturation 95% on room air. General: She is awake, but pale. She is not in distress. N eurologic: She is oriented x3, follows all commands. HEENT: There is no conjunctival hemorrhage. There is no thrush. Neck: Supple without mass. Lymph nodes: There is no cervical, supraclavicular, inguinal, axillary, or epitrochlear lymphadenopathy. Heart: Regular rate and rhythm without murmur s, rubs, or gallops. Lungs are clear to auscultation bilaterally. Abdomen is soft, nontender, and n ondistended. There are bowel sounds present. Skin: There is no rash or splinter hemorrhage. Muscu loskeletal: There is no spinal tenderness to palpation or joint synovitis. DIAGNOSTIC STUDIES/LAB DATA: White blood cell count 5.7, hemoglobin 8.7, platelets 111, MCV of 77. Creatinine 0.8, CRP 67, alkaline phosphatase 150, bilirubin 1.5. Please see impressions and recommendations outlined above that I discussed with YUSUF Kimball. Thank you for asking me to see Ms. Mcallister in consultation. [id number]/CPS #: [id number]
--- NOTE | 2018-12-30 15:35 | HP ---
CC: Dr. Diaz Stokes; Dr. Rema Foster; Dr. Lev Judge* ADMISSION HISTORY AND PHYSICAL: DATE OF ADMISSION: 12/30/18 PRIMARY CARE PROVIDER: Dr. Diaz Stokes. ATTENDING PHYSICIAN: Dr. Rema Foster* (dictated by Akin Cardenas, MARY ). CONSULTING PHYSICIAN: Dr. Lev Judge, Infectious Disease. CHIEF COMPLAINT: Lower extremity weakness that started 2 weeks ago. HISTORY OF PRESENT ILLNESS: Ms. Mcallister is a very pleasant 78-year-old female patient who reports what she thought to be a cold or viral illness approximately 2 to 3 weeks ago, shortly thereafter she started to get some generalized weakness. She states that her weakness was primarily located in the lower extremities and that over the last 2 weeks it became progressively worse. She had initially attributed her symptoms to taking Levaquin. She did have a urinary tract infection for which she was placed on Levaquin. She noted that one side effect of Levaquin could be lower extremity weakness and again she attributed her symptoms to this medication. When she called her primary care provider to discuss these symptoms, she was sent to the emergency department for evaluation. In the ED, lab work was drawn. She is found to be anemic which is new. Recent laboratory work within the past few weeks did not show any history of anemia, with normal H and H. She was also noted on her peripheral smear to have parasites in her blood. Hospitalists were then requested to evaluate the patient for admission. Dr. Lev Judge from Infectious Disease was also notified to come and evaluate the patient. At this time, there was a concern for babesiosis, although the patient denies any recent tick activity or bites. She also denies any overseas travel or any exposure; however, at this time, she will continue to be worked up for any tick - borne illness. PAST MEDICAL HISTORY: Significant for diabetes mellitus type 2, insulin dependent; hypertension; hypothyroidism; hyperlipidemia. PAST SURGICAL HISTORY: Significant for hysterectomy, tonsillectomy and cervical fusion in 1999. HOME MEDICATIONS: Include: 1. Regular insulin 16 units subcu 2 times a day before meals. 2. Insulin NPH 45 units subcu in the morning and 36 units subcu in the evening. 3. Pravastatin 40 mg p.o. daily. 4. Metoprolol succinate XL 50 mg p.o. daily. 5. Metformin 500 mg p.o. b.i.d. 6. Meclizine 12.5 mg p.o. 3 times a day as needed. 7. Losartan with hydrochlorothiazide 100/25 mg tablet, 1 tab p.o. daily. 8. Claritin 10 mg p.o. daily as needed. 9. Levothyroxine 75 mcg p.o. daily. 10. Amlodipine 10 mg p.o. daily. 11. Multivitamin 1 tablet p.o. daily. ALLERGIES: The patient has allergy to PENICILLIN and PROPOXYPHENE and TAPE. PENICILLIN allergy is hives. FAMILY HISTORY: Mother with cardiac disease. SOCIAL HISTORY: The patient denies alcohol, tobacco, or illicit drug use. Her healthcare proxy is her Beto who is at the bedside, he can be reached at [phone]. She is a full code. REVIEW OF SYSTEMS: The patient does feel generally weak primarily in the lower extremities, but she denies any fever, fatigue or chills. She does endorse an unproductive cough but no acute shortness of breath. She denies any chest pain or palpitations. No abdominal pains. No nausea, no vomiting. No urinary complaints. No bowel complaints. No joint pain or swelling. No night sweats. No sleep disorder. No arthralgias or myalgias and no further constitutional complaints. PHYSICAL EXAMINATION GENERAL: Reveals an older female, in no acute distress. She is pale. VITAL SIGNS: Blood pressure 140/68, heart rate 63, respiratory rate 18, O2 saturation 95% to 99% on room air with temperature of 98.7. HEENT: The patient is atraumatic, normocephalic. PERRLA. Nonicteric sclerae. Oral mucosa is also pale. Tongue is midline. NECK: Supple, nontender. No JVD noted. No carotid bruits auscultated. LUNGS: Clear bilaterally to auscultation with no wheezing, rhonchi, or rales. CARDIOVASCULAR: S1, S2 present. No murmurs, gallops, or rubs noted. Rate and rhythm are regular to bradycardic. ABDOMEN: Soft, nontender, nondistended. Moderately obese. No organomegaly noted. : Deferred. MUSCULOSKELETAL: There is no clubbing, no cyanosis, no edema. She has +2 distal pulses palpable. She has gross motor and sensation intact. She has some diminished dorsiflexion on the left lower extremity. She has 5/5 strength in the right lower extremity. NEUROLOGIC: She is otherwise grossly intact. Alert and oriented x3. PSYCHIATRIC: She is cooperative and appropriate. DIAGNOSTIC DATA/LAB DATA: WBC is 5.7, RBC is 3.35, hemoglobin 8.7, hematocrit 26, MCV 77, MCH 26, MCHC 34, RDW 18, platelets 111. Serology, parasites are seen on her smear. Sodium 138, potassium 4.5, chloride 106, CO2 27, BUN 24, creatinine 0.83, GFR 66.8, BUN and creatinine ratio is 28.9, glucose 158, calcium 9.4, magnesium 2.0. Total bilirubin 1.50, AST 29, ALT 32, alk phos 150. CRP 67.67. Total protein 5.4, albumin 2.9, globulin 2.5, albumin/globulin ratio 1.2. TSH is 1.65. Imaging: No further imaging or laboratory studies are available. Pending laboratories are tick-borne panel, malaria, Lyme; these had been received but are still pending. IMPRESSION: Ms. Mcallister is a 78-year-old female patient who presented to the emergency department at the recommendation of her primary care provider for lower extremity weakness, found to have parasitic infection. PLAN: The patient has been admitted to medical service. DIAGNOSES: 1. Generalized weakness and parasitic infection: Dr. Judge has already been consulted and seen the patient. She has been worked up primarily for babesiosis versus other tick-borne illness. She has been started on azithromycin 500 mg daily. She has also been started on atovaquone 750 mg p[address]o. [address] Judge will continue to follow the patient's case and her laboratory work. In terms of her weakness, I have ordered PT/OT consult. The patient can be out of bed with assistance and we will continue to follow her course very closely. Right now, she is afebrile, but I have ordered Tylenol and we will continue to monitor temperatures. 2. 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 Her bilirubin is 1.5. At this time, I have also ordered iron studies. We can consider hematology consult tomorrow if her numbers continue to trend down. 3. Diabetes mellitus, insulin dependent: We will continue her on her antidiabetic medications and her current insulin regimen. 4. Hypothyroidism: She will be continued on her Synthroid. 5. Hyperlipidemia: She will be continued on her statin. 6. DVT prophylaxis: The patient is high risk for bleeding given her anemia and thrombocytopenia. She will be placed on SCDs only. 7. Diet: Consistent carbohydrate diet as tolerated. The rest of the patient's course will be determined by further diagnostics, laboratories and any other input from other providers as warranted during this admission. TIME SPENT: Approximately 75 minutes on direct patient care and developing admission plan of care. This plan of care has been discussed with Dr. Bhavin Foster, the attending on this case. AKIN CARDENAS, MARY [id number]/[facility] #: [id number] MATILDA
[2018-12-30 16:01] LABS: % Iron Saturation 13 % (15-55); Iron 25 ug/dL (50-212); Total Iron Binding Capacity 195 mcg/dL (250-450); Transferrin 139 mg/dL (203-362)
[2018-12-30 16:09] LABS: Ferritin 589.5 ng/mL (11-307)
[2018-12-30 16:12] LABS: Folate > 20.00 ng/mL (>3.99)
[2018-12-30] MEDS: Insulin REGULAR(*) 1 UNITS UNIT SUBCUT SCH (17:45)
[2018-12-30] MEDS ORDERED: Insulin NPH(*) 1 UNITS UNIT SUBCUT SCH (21:00)
[2018-12-30] MEDS: metFORMIN* 500 MG TAB PO SCH (21:50)
[2018-12-30] MEDS: Atovaquone* 750 MG/5 ML UDC PO SCH (22:01)
[2018-12-31] MEDS ORDERED: Dextrose 50% VIAL 50 ml IV PUSH PRN (04:40)
[2018-12-31] MEDS ORDERED: Dextrose 50% VIAL 50 ml ONE (04:44)
[2018-12-31] MEDS: Levothyroxine TAB* 75 MCG TAB PO SCH (05:21)
[2018-12-31 06:36] LABS: Hematocrit 25 % (35-47); Hemoglobin 8.6 g/dL (12.0-16.0); Mean Corpuscular HGB Conc 34 g/dL (31-36); Mean Corpuscular Hemoglobin 26 pg (27-31); Mean Corpuscular Volume 77 fL (80-97); Platelet Count 126 10^3/uL (150-450); Red Blood Count 3.25 10^6 /uL (3.70-4.87); Red Cell Distribution Width 18 % (10-15); White Blood Count 4.8 10^3/uL (3.5-10.8)
[2018-12-31 07:00] LABS: Albumin 2.9 g/dL (3.2-5.2); Albumin/Globulin Ratio 1.2 (1-3); BUN/Creatinine Ratio 29.6 (8-20); Calcium 9.1 mg/dL (8.6-10.3); EGFR African American 96.8 (>60); Globulin 2.5 g/dL (2-4); Potassium 4.3 mmol/L (3.5-5.0); Total Protein 5.4 g/dL (6.4-8.9)
[2018-12-31 07:02] LABS: ABS Eosinophils 0.1 10^3/ul (0-0.6); ABS Lymphocytes 0.8 10^3/ul (1.0-4.8); ABS Monocytes 1.1 10^3/ul (0-0.8); ABS Neutrophils 2.8 10^3/ul (1.5-7.7); Eosinophil % 1.1 %; Lymphocyte % 17.3 %; Nucleated Red Blood Cells % 0.1
[2018-12-31 07:06] LABS: Polychromasia 1+
[2018-12-31] MEDS: Atovaquone* 750 MG/5 ML UDC PO SCH ×2 (08:10→21:14)
[2018-12-31] MEDS: Losartan TAB* 25 MG PO SCH (08:10)
[2018-12-31] MEDS: Metoprolol Succinate XL TAB* 50 MG PO SCH (08:10)
[2018-12-31] MEDS: Insulin NPH(*) 1 UNITS UNIT SUBCUT SCH (08:10)
[2018-12-31] MEDS: metFORMIN* 500 MG TAB PO SCH ×2 (08:10→21:14)
[2018-12-31] MEDS: amLODIPine TAB* 5 MG PO SCH (08:10)
[2018-12-31] MEDS: Atorvastatin* 10 MG TAB PO SCH (08:10)
[2018-12-31] MEDS: Hydrochlorothiazide TAB* 25 MG PO SCH (08:10)
[2018-12-31] MEDS: Insulin REGULAR(*) 1 UNITS UNIT SUBCUT SCH ×2 (08:11→17:26)
--- NOTE | 2018-12-31 09:31 | PN ---
Progress Note - Progress Note Date of Service: 12/31/18 SOAP: Subjective: CC: Malaise HPI: Ms. Mcallister is a 78 yo female with PMH significant for DM2, HTN, and hypothyroidism. Denies fever, chills, nausea, vomiting, or diarrhea. Reports right knee pain, states this started after a fall at home. Reports a mildly stiff neck this AM, and feels that it is from the way she was sleeping last night. Overall she states that she is feeling better today. Objective: Vital Signs - 8 hr 12/31/18 12/31/18 12/31/18 02:00 07:22 08:18 Temperature 98.4 F 98.5 F Pulse Rate 71 71 Respiratory 20 18 18 Rate Blood Pressure 160/45 152/79 (mmHg) O2 Sat by Pulse 97 98 Oximetry Physical Exam: General: NAD, sitting up in a chair Neurological: Alert and Oriented x4 HEENT: Moist MM, no thrush. No nuchal rigidity, full ROM of neck Cardiovascular: Heart rate regular, no murmur Respiratory: Lung sounds clear bilateral Abdominal: Bowel sounds present; ABD soft, large, non tender and non distended MSK: Right knee with full ROM, no tenderness with palpation, no edema, no effusion, no erythema or warmth. No tenderness with palpation of the neck, back or spine. Skin: No rash Laboratory Last Values WBC 4.8 10^3/uL (3.5-10.8) 12/31/18 05:53 RBC 3.25 10^6 /uL (3.70-4.87) L 12/31/18 05:53 Hgb 8.6 g/dL (12.0-16.0) L 12/31/18 05:53 Hct 25 % (35-47) L 12/31/18 05:53 MCV 77 fL (80-97) L 12/31/18 05:53 MCH 26 pg (27-31) L 12/31/18 05:53 MCHC 34 g/dL (31-36) 12/31/18 05:53 RDW 18 % (10-15) H 12/31/18 05:53 Plt Count 126 10^3/uL (150-450) L 12/31/18 05:53 MPV 10.0 fL (7.4-10.4) 12/31/18 05:53 Neut % (Auto) 57.8 % 12/31/18 05:53 Lymph % (Auto) 17.3 % 12/31/18 05:53 [place] % (Auto) 23.4 % 12/31/18 05:53 Eos % (Auto) 1.1 % 12/31/18 05:53 Baso % (Auto) 0.4 % 12/31/18 05:53 Absolute Neuts (auto) 2.8 10^3/ul (1.5-7.7) 12/31/18 05:53 Absolute Lymphs (auto) 0.8 10^3/ul (1.0-4.8) L 12/31/18 05:53 Absolute Monos (auto) 1.1 10^3/ul (0-0.8) H 12/31/18 05:53 Absolute Eos (auto) 0.1 10^3/ul (0-0.6) 12/31/18 05:53 Absolute Basos (auto) 0.0 10^3/ul (0-0.2) 12/31/18 05:53 Absolute Nucleated RBC 0.0 10^3/ul 12/31/18 05:53 Neutrophils % 69.0 % 12/31/18 05:53 Lymphocytes % 13.0 % 12/31/18 05:53 Reactive Lymphs % 1.0 % (0-6) 12/30/18 09:40 Monocytes % 18.0 % 12/31/18 05:53 Nucleated RBC % 0.1 12/31/18 05:53 Nucleated RBCs/100 WBC 1.0 (0-0) H 12/31/18 05:53 Normal RBC Morphology Not Reportable 12/31/18 05:53 Polychromasia 1+ 12/31/18 05:53 Hypochromasia 1+ 12/30/18 09:40 Basophilic Stippling 1+ 12/31/18 05:53 Anisocytosis 1+ 12/31/18 05:53 Smear Path Review 12/30/18 09:40 Hem Pathologist Commnt 12/30/18 09:40 Sodium 139 mmol/L (135-145) 12/31/18 05:53 Potassium 4.3 mmol/L (3.5-5.0) 12/31/18 05:53 Chloride 106 mmol/L (101-111) 12/31/18 05:53 Carbon Dioxide 28 mmol/L (22-32) 12/31/18 05:53 Anion Gap 5 mmol/L (2-11) 12/31/18 05:53 BUN 21 mg/dL (6-24) 12/31/18 05:53 Creatinine 0.71 mg/dL (0.51-0.95) 12/31/18 05:53 Est GFR ( Amer) 96.8 (>60) 12/31/18 05:53 Est GFR (Non-Af Amer) 80.0 (>60) 12/31/18 05:53 BUN/Creatinine Ratio 29.6 (8-20) H 12/31/18 05:53 Glucose 205 mg/dL (70-100) H 12/31/18 05:53 POC Glucose (mg/dL) 152 mg/dL (70-100) H 12/31/18 08:05 Calcium 9.1 mg/dL (8.6-10.3) 12/31/18 05:53 Magnesium 2.0 mg/dL (1.9-2.7) 12/30/18 09:40 Iron 25 ug/dL (50-212) L 12/30/18 14:43 TIBC 195 mcg/dL (250-450) L 12/30/18 14:43 % Saturation 13 % (15-55) L 12/30/18 14:43 Unsat Iron Binding < 180 ug/dL 12/30/18 14:43 Transferrin 139 mg/dL (203-362) L 12/30/18 14:43 Ferritin 589.5 ng/mL (11-307) H 12/30/18 14:43 Total Bilirubin 1.00 mg/dL (0.2-1.0) 12/31/18 05:53 AST 21 U/L (13-39) 12/31/18 05:53 ALT 25 U/L (7-52) 12/31/18 05:53 Alkaline Phosphatase 130 U/L (34-104) H 12/31/18 05:53 C-Reactive Protein 67.67 mg/L (<8.01) H 12/30/18 09:40 Total Protein 5.4 g/dL (6.4-8.9) L 12/31/18 05:53 Albumin 2.9 g/dL (3.2-5.2) L 12/31/18 05:53 Globulin 2.5 g/dL (2-4) 12/31/18 05:53 Albumin/Globulin Ratio 1.2 (1-3) 12/31/18 05:53 Vitamin B12 776 pg/mL (180-914) 12/30/18 14:43 Folate > 20.00 ng/mL (>3.99) 12/30/18 14:43 TSH 1.65 mcIU/mL (0.34-5.60) 12/30/18 09:40 Urine Color Yellow 12/30/18 10:40 Urine Appearance Cloudy 12/30/18 10:40 Urine pH 5.0 (5-9) 12/30/18 10:40 Ur Specific [place] 1.013 (1.010-1.030) 12/30/18 10:40 Urine Protein Negative (Negative) 12/30/18 10:40 Urine Ketones Negative (Negative) 12/30/18 10:40 Urine Blood Negative (Negative) 12/30/18 10:40 Urine Nitrate Negative (Negative) 12/30/18 10:40 Urine Bilirubin Negative (Negative) 12/30/18 10:40 Urine Urobilinogen Positive (Negative) A 12/30/18 10:40 Ur Leukocyte Esterase Negative (Negative) 12/30/18 10:40 Urine Glucose Negative (Negative) 12/30/18 10:40 Lyme Total Antibody Positive (Negative) A 12/30/18 09:40 Blood Parasite Screen Parasites seen (No Parasite) A* 12/30/18 09:40 Assessment: 1. Malaise and thrombocytopenia. Parasites seen on RBCs. 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 Tick borne panel pending. Lyme Ab positive, Western Blot pending. Feeling a little better today. Reports right knee pain, no effusion. Afebrile and no leukocytosis. 2. Anemia. Counts stable. 3. PCN allergy. 4. DM2. Plan: Continue azithromycin 500 mg IV daily and atovaquone 750 mg PO BID, will need a total of 10 days of ABX. Can transition to oral azithromycin prior to discharge.
[2018-12-31] MEDS: Azithromycin 500 mg/250 ml NS 500 MG/250 ML BAG IVPB SCH (12:15)
--- NOTE | 2018-12-31 17:32 | PN ---
Subjective Date of Service: 12/31/18 Interval History: Feeling better today but still tired and didnt want to walk around No fevers o/n Objective Active Medications: Acetaminophen (Tylenol Tab*) 650 mg PO Q4H PRN PRN Reason: MILD PAIN or TEMP > 100.4 Amlodipine Besylate (Norvasc Tab*) 10 mg PO DAILY [facility] Last Admin: 12/31/18 08:10 Dose: 10 mg Atorvastatin Calcium (Lipitor*) 10 mg PO DAILY [facility]; Protocol Last Admin: 12/31/18 08:10 Dose: 10 mg Atovaquone (Mepron*) 750 mg PO BID [facility] Last Admin: 12/31/18 08:10 Dose: 750 mg Dextrose (Dextrose 50% Vial 50 Ml*) 50 ml IV PUSH .FOR FS < 60 - SS PRN PRN Reason: FS < 60 Last Admin: 12/31/18 04:54 Dose: 50 ml Hydrochlorothiazide (Hydrodiuril Tab*) 25 mg PO DAILY [facility] Last Admin: 12/31/18 08:10 Dose: 25 mg Azithromycin (Zithromax 500 Mg/250 Ml) 500 mg in 250 mls @ 250 mls/hr IVPB Q24H [facility] Last Admin: 12/31/18 12:15 Dose: 250 mls/hr Insulin Human NPH (Insulin Nph(*)) 45 units SUBCUT QAM [facility] Last Admin: 12/31/18 08:10 Dose: 45 units Insulin Human NPH (Insulin Nph(*)) 20 units SUBCUT BEDTIME [facility] Insulin Human Regular (Insulin Regular(*)) 16 units SUBCUT BID AC [facility] Last Admin: 12/31/18 17:26 Dose: 16 units Levothyroxine Sodium (Synthroid Tab*) 75 mcg PO 0600 [facility] Last Admin: 12/31/18 05:21 Dose: 75 mcg Losartan Potassium (Cozaar Tab*) 100 mg PO DAILY [facility] Last Admin: 12/31/18 08:10 Dose: 100 mg Magnesium Hydroxide (Milk Of Magnesia Liq*) 30 ml PO Q4H PRN PRN Reason: CONSTIPATION Metformin HCl (Glucophage*) 500 mg PO BID [facility] Last Admin: 12/31/18 08:10 Dose: 500 mg Metoprolol Succinate (Toprol Xl Tab*) 50 mg PO DAILY [facility] Last Admin: 12/31/18 08:10 Dose: 50 mg Vital Signs - 8 hr 12/31/18 12/31/18 11:21 15:52 Temperature 98.3 F 98.2 F Pulse Rate 79 71 Respiratory 18 20 Rate Blood Pressure 139/71 141/59 (mmHg) O2 Sat by Pulse 97 99 Oximetry Oxygen Devices in Use Now: None Appearance: stated age, NAD Eyes: No Scleral Icterus Ears/Nose/Mouth/Throat: NL Teeth, Lips, Gums, Clear Oropharnyx Neck: NL Appearance and Movements; NL JVP Respiratory: Symmetrical Chest Expansion and Respiratory Effort, Clear to Auscultation Cardiovascular: RRR Abdominal: NL Sounds; No Tenderness; No Distention Lymphatic: No Cervical Adenopathy Extremities: No Edema Skin: No Rash or Ulcers Neurological: Alert and Oriented x 3 Result Diagrams: 12/31/18 05:53 12/31/18 05:53 Additional Lab and Data: Lab Results 12/30/18 12/30/18 Range/Units 09:40 09:40 WBC 5.7 (3.5-10.8) 10^3/uL RBC 3.35 L (3.70-4.87) 10^6 /uL Hgb 8.7 L (12.0-16.0) g/dL Hct 26 L (35-47) % MCV 77 L (80-97) fL MCH 26 L (27-31) pg MCHC 34 (31-36) g/dL RDW 18 H (10-15) % Plt Count 111 L (150-450) 10^3/uL MPV 9.8 (7.4-10.4) fL Neut % (Auto) 68.0 % Lymph % (Auto) 11.3 % [place] % (Auto) 19.9 % Eos % (Auto) 0.4 % Baso % (Auto) 0.4 % Absolute Neuts (auto) 3.9 (1.5-7.7) 10^3/ul Absolute Lymphs (auto) 0.6 L (1.0-4.8) 10^3/ul Absolute Monos (auto) 1.1 H (0-0.8) 10^3/ul Absolute Eos (auto) 0.0 (0-0.6) 10^3/ul Absolute Basos (auto) 0.0 (0-0.2) 10^3/ul Absolute Nucleated RBC 0.0 10^3/ul Neutrophils % Pending Nucleated RBC % 0.2 Normal RBC Morphology Pending Smear Path Review Pending Sodium 138 (135-145) mmol/L Potassium 4.5 (3.5-5.0) mmol/L Chloride 106 (101-111) mmol/L Carbon Dioxide 27 (22-32) mmol/L Anion Gap 5 (2-11) mmol/L BUN 24 (6-24) mg/dL Creatinine 0.83 (0.51-0.95) mg/dL Est GFR ( Amer) 80.9 (>60) Est GFR (Non-Af Amer) 66.8 (>60) BUN/Creatinine Ratio 28.9 H (8-20) Glucose 158 H (70-100) mg/dL Calcium 9.4 (8.6-10.3) mg/dL Magnesium 2.0 (1.9-2.7) mg/dL Total Bilirubin 1.50 H (0.2-1.0) mg/dL AST 29 (13-39) U/L ALT 32 (7-52) U/L Alkaline Phosphatase 150 H (34-104) U/L C-Reactive Protein 67.67 H (<8.01) mg/L Total Protein 5.4 L (6.4-8.9) g/dL Albumin 2.9 L (3.2-5.2) g/dL Globulin 2.5 (2-4) g/dL Albumin/Globulin Ratio 1.2 (1-3) TSH Pending Blood Parasite Screen Parasites seen A* (No Parasite) Assess/Plan/Problems-Billing Assessment: 78 F h/o IDDM pw fatigue and malaise found with new onset anemia and parasites on smear - Patient Problems (1) Anemia Comment: suspect babesia based on +parasite smear Azithro and atovaquone lyme western blot pending after +JASON check stool occult blood and LDH (2) Insulin dependent diabetes mellitus Comment: hypoglycemia o/n decrease evening NPH from 36 to 20 units continue home dose AM NPH metformin (3) DVT prophylaxis Comment: lovenox
[2018-12-31] MEDS ORDERED: Enoxaparin(*) 40 MG/0.4 ML SYR SUBCUT SCH (18:00)
[2018-12-31] MEDS ORDERED: Insulin NPH(*) 1 UNITS UNIT SUBCUT SCH (21:00)
[2019-01-01] MEDS: Levothyroxine TAB* 75 MCG TAB PO SCH (06:01)
[2019-01-01 08:12] LABS: Hematocrit 26 % (35-47); Hemoglobin 8.6 g/dL (12.0-16.0); Mean Corpuscular HGB Conc 34 g/dL (31-36); Mean Corpuscular Hemoglobin 26 pg (27-31); Mean Corpuscular Volume 77 fL (80-97); Mean Platelet Volume 9.5 fL (7.4-10.4); Platelet Count 156 10^3/uL (150-450); Red Blood Count 3.31 10^6 /uL (3.70-4.87); Red Cell Distribution Width 18 % (10-15)
[2019-01-01 08:42] LABS: ABS Eosinophils 0.1 10^3/ul (0-0.6); ABS Lymphocytes 0.9 10^3/ul (1.0-4.8); ABS Monocytes 1.1 10^3/ul (0-0.8); Eosinophil % 1.3 %; Lymphocyte % 17.1 %; Nucleated Red Blood Cells % 0.1
[2019-01-01 08:43] LABS: Polychromasia 2+
[2019-01-01] MEDS: Metoprolol Succinate XL TAB* 50 MG PO SCH (08:57)
[2019-01-01] MEDS: metFORMIN* 500 MG TAB PO SCH (08:57)
[2019-01-01] MEDS: Hydrochlorothiazide TAB* 25 MG PO SCH (08:57)
[2019-01-01] MEDS: Atorvastatin* 10 MG TAB PO SCH (08:57)
[2019-01-01] MEDS: Losartan TAB* 25 MG PO SCH (08:57)
[2019-01-01] MEDS: amLODIPine TAB* 5 MG PO SCH (08:57)
[2019-01-01] MEDS: Insulin REGULAR(*) 1 UNITS UNIT SUBCUT SCH (08:58)
[2019-01-01] MEDS: Atovaquone* 750 MG/5 ML UDC PO SCH (08:58)
[2019-01-01] MEDS: Insulin NPH(*) 1 UNITS UNIT SUBCUT SCH (08:59)
[2019-01-01 12:00] VITALS: BP 123/47
[2019-01-01] MEDS: Azithromycin 500 mg/250 ml NS 500 MG/250 ML BAG IVPB SCH (12:28)
--- NOTE | 2019-01-01 18:27 | DS ---
CC: Dr. Stokes; Dr. Lev Judge * DISCHARGE SUMMARY: DATE OF ADMISSION: 12/30/18 DATE OF DISCHARGE: 01/01/19 PRIMARY CARE PROVIDER: Dr. Diaz Stokes. DISPOSITION ON DISCHARGE: Home. CONDITION ON DISCHARGE: Improved. PRIMARY DIAGNOSES: 1. Suspected babesiosis. 2. Hypoglycemia during hospital stay. SECONDARY DIAGNOSES: Include: 1. Anemia. 2. Weakness. 3. Insulin-dependent type 2 diabetes mellitus. 4. Hypertension. 5. Hypothyroidism. 6. Hyperlipidemia. MEDICATIONS AT DISCHARGE: Include: 1. Insulin regular 16 units twice daily with meals. 2. Insulin NPH Humulin 45 units in the morning and 20 units in the evening. Please note the decrease in dose from 36 to 20 units in the evening secondary to hypoglycemia during hospital stay. 3. Pravastatin 40 mg daily. 4. Metoprolol succinate 50 mg daily. 5. Metformin 500 mg twice daily. 6. Meclizine 25 mg 3 times a day as needed. 7. Losartan/hydrochlorothiazide 100/25 one tab daily. 8. Claritin 10 mg daily. 9. Levothyroxine 75 mcg daily. 10. Amlodipine 10 mg daily. 11. Multivitamin 1 tab daily. 12. Atovaquone 750 mg twice daily for 8 days. 13. Azithromycin 250 mg daily for 8 days. PERTINENT LABORATORY DATA: Blood parasite screen is positive for parasites. No percentage. No final differentiation. No final speciation on the parasites was made at [facility] Lyme total antibody is positive, but confirmatory Western blot is negative. Hemoglobin 8.7, remained stable during hospital stay; MCV of 77; platelet count 111 on presentation, 156 on discharge. HISTORY OF PRESENT ILLNESS AND HOSPITAL COURSE: This is a 78-year-old female with past medical history as outlined in the history of presenting illness on the day of admission, had a preceding viral illness, prior hospital stay followed by generalized weakness more severe in the lower extremities for which she sought care at [facility] She was found with a new anemia at the hospital stay. No evidence of blood loss; however, blood smear positive for parasites as indicated above. She was seen in consultation with infectious disease specialist with a presumptive diagnosis of babesiosis. The patient does not spend significant amount of time outdoors, but does have 2 dogs that do spend time in the [place], 1 that is not treated with medication to prevent ticks. She was started on atovaquone and azithromycin with improvement in her strength. She was ambulating around the unit prior to her discharge and requesting discharge home. She will complete a total of 10-day course of atovaquone and azithromycin. No specific labs or vitals to follow up. At followup, please: 1. Follow up for complete resolution of symptomatology. 2. Can follow hemoglobin at your discretion. 3. Ensure follows with Dr. Lev Judge in Infectious Disease Clinic. 4. No other specific labs or vitals that need followup. Reasons to return to the hospital including, but not limited to recurrent or worsening symptoms, increasing weakness, any evidence of blood loss, chest pain , shortness of breath, nausea, vomiting, lightheadedness, loss of consciousness or near loss of consciousness were discussed with the patient and she acknowledged understanding. TIME SPENT: Greater than 60 minutes was spent on the discharge of the patient, greater than half was spent [id number] with the patient. [id number]/[facility] #: [id number] MATILDA
[2019-01-02 21:02] LABS: Anaplasma phagocytophilum Negative (Negative); B. miyamotoi PCR, B Negative (Negative); Babesia divergens/MO-1 Negative (Negative); Babesia ducani Negative (Negative); Ehrlichia chaffeensis Negative (Negative); Ehrlichia ewingii/canis Negative (Negative); Ehrlichia muris eauclairensis Negative (Negative)
== END 2019-01-01 14:25 | disposition home health service (06) | DRG 869 ==
LOC: ED 08:53 → MED 12:39
PROVIDERS: ADMIT Internal Medicine; ATTEND Internal Medicine
DX: B60.0 Babesiosis (principal); E11.649 Type 2 diabetes mellitus with hypoglycemia without coma; D69.6 Thrombocytopenia, unspecified; D64.9 Anemia, unspecified; R53.1 Weakness; I10 Essential (primary) hypertension; E03.9 Hypothyroidism, unspecified; M25.561 Pain in right knee; E78.5 Hyperlipidemia, unspecified; Z79.4 Long term (current) use of insulin; Z79.84 Long term (current) use of oral hypoglycemic drugs; Z79.899 Other long term (current) drug therapy; Z88.0 Allergy status to penicillin; Z88.8 Allergy status to other drugs, medicaments and biological substances; Z91.048 Other nonmedicinal substance allergy status; Z82.49 Family history of ischemic heart disease and other diseases of the circulatory system
CPT/HCPCS: 36415; 80053; 81003; 82607; 82728; 82746; 83540; 83550; 83615; 83735; 84443; 85025; 85060; 86140; 86617; 86618; 87015; 87207; 87798; 99284; A9270-GY; G8978-GP-CJ; G8979-GP-CI; G8987-GO-CI; G8988-GO-CI; G8991-GO-CL; J0456; J1650; J1815

== ENCOUNTER 2020-10-26 09:40 | Inpatient (IN) ==
[2020-10-26 10:15] LABS: Urine Appearance Turbid; Urine Bilirubin Negative (Negative); Urine Blood 3+ (Negative); Urine Color Yellow; Urine Glucose 3+(>=500 mg/dL) (Negative); Urine Ketones 1+ (Negative); Urine Nitrite Negative (Negative); Urine Protein 3+(>=500 mg/dL) (Negative); Urine Specific Gravity 1.018 (1.002-1.030); Urine Urobilinogen Negative (Negative)
[2020-10-26 10:25] LABS: ABS Lymphocytes 0.7 10^3/ul (1.0-4.8); ABS Monocytes 0.6 10^3/ul (0-0.8); ABS Neutrophils 7.4 10^3/ul (1.5-7.7); Eosinophil % 0.3 %; Hematocrit 37 % (35-47); Hemoglobin 12.5 g/dL (12.0-16.0); Lymphocyte % 8.2 %; Mean Corpuscular HGB Conc 34 g/dL (31-36); Mean Corpuscular Hemoglobin 26 pg (27-31); Mean Corpuscular Volume 77 fL (80-97); Mean Platelet Volume 7.8 fL (7.4-10.4); Platelet Count 272 10^3/uL (150-450); Red Cell Distribution Width 17 % (10-15); White Blood Count 8.9 10^3/uL (3.5-10.8)
[2020-10-26 10:27] LABS: Urine Bacteria Absent (Absent); Urine Red Blood Cell 3+(>10/hpf) (Absent); Urine White Blood Cell 3+(>20/hpf) (Absent)
[2020-10-26 10:40] LABS: Albumin 3.2 g/dL (3.2-5.2); Albumin/Globulin Ratio 1.1 (1-3); C Reactive Protein 108.44 mg/L (<8.01); Calcium 9.5 mg/dL (8.6-10.3); EGFR African American 101.3 (>60); EGFR Non-African American 83.7 (>60); Potassium 4.1 mmol/L (3.5-5.0); Total Bilirubin 0.9 mg/dL (0.2-1.0); Total Protein 6.2 g/dL (6.4-8.9)
[2020-10-26] MEDS ORDERED: Iodixanol (CONTRAST) 320 MG/ML 100 ML SDV IV ONE (10:47)
[2020-10-26] MEDS ORDERED: NS 0.9% 1000 ml BAG 1,000 ML IV ONE (11:00)
[2020-10-26] MEDS ORDERED: Ciprofloxacin 400mg IVPREMIX 400 MG/200 ML BAG IVPB ONE (12:23)
[2020-10-26] MEDS ORDERED: metroNIDAZOLE IV 500 MG/100ML 500 MG/100 ML BAG IVPB ONE (12:25)
[2020-10-26] MEDS ORDERED: Dextrose 50% Syringe 50 ml 25 GM/50 ML SYRINGE IV PUSH PRN (15:50)
[2020-10-26] MEDS ORDERED: hydrALAZINE 20 mg/ml 1 ML Vial IV IV SLOW PU PRN (17:00)
[2020-10-26] MEDS: Enoxaparin 40 MG/0.4 ML SYR SUBCUT SCH (18:25)
[2020-10-26 20:02] LABS: INR 1.18 (0.86-1.15)
[2020-10-26] MEDS: Morphine 2 MG/ML SYRINGE IV PRN (20:35)
[2020-10-26] MEDS: cefTRIAXone 2 GM ADDV.VIAL 2 GM in NS 0.9% 100 ml BAG 100 ML IV SCH (21:06)
[2020-10-26] MEDS: metroNIDAZOLE IV 500 MG/100ML 500 MG/100 ML BAG IVPB SCH (22:25)
[2020-10-27] MEDS: metroNIDAZOLE IV 500 MG/100ML 500 MG/100 ML BAG IVPB SCH ×3 (05:25→23:17)
[2020-10-27] MEDS: Morphine 2 MG/ML SYRINGE IV PRN (05:35)
[2020-10-27 05:51] LABS: ABS Basophils 0.1 10^3/ul (0-0.2); ABS Monocytes 0.9 10^3/ul (0-0.8); ABS Neutrophils 6.8 10^3/ul (1.5-7.7); Eosinophil % 0.2 %; Hematocrit 36 % (35-47); Lymphocyte % 11.4 %; Mean Corpuscular HGB Conc 33 g/dL (31-36); Mean Corpuscular Hemoglobin 26 pg (27-31); Mean Corpuscular Volume 77 fL (80-97); Mean Platelet Volume 7.6 fL (7.4-10.4); Platelet Count 276 10^3/uL (150-450); Red Blood Count 4.68 10^6 /uL (3.70-4.87); Red Cell Distribution Width 17 % (10-15); White Blood Count 8.7 10^3/uL (3.5-10.8)
[2020-10-27] MEDS: Insulin GLARGINE 100 un/ml 10 ml VIAL SUBCUT SCH (07:51)
[2020-10-27] MEDS ORDERED: Losartan/HCTZ 100/25 TAB (NF) PO SCH (09:00)
[2020-10-27] MEDS ORDERED: Insulin GLARGINE 100 un/ml 10 ml VIAL SUBCUT SCH (09:00)
[2020-10-27] MEDS: Enoxaparin 40 MG/0.4 ML SYR SUBCUT SCH (17:16)
[2020-10-27] MEDS: cefTRIAXone 2 GM ADDV.VIAL 2 GM in NS 0.9% 100 ml BAG 100 ML IV SCH (22:11)
[2020-10-28] MEDS ORDERED: Morphine 2 MG/ML SYRINGE IV ONE (03:50)
[2020-10-28 04:44] LABS: ABS Basophils 0.1 10^3/ul (0-0.2); ABS Eosinophils 0.1 10^3/ul (0-0.6); ABS Lymphocytes 0.8 10^3/ul (1.0-4.8); ABS Monocytes 0.9 10^3/ul (0-0.8); ABS Neutrophils 6.4 10^3/ul (1.5-7.7); Eosinophil % 1.1 %; Hematocrit 36 % (35-47); Hemoglobin 12.1 g/dL (12.0-16.0); Lymphocyte % 9.6 %; Mean Corpuscular HGB Conc 33 g/dL (31-36); Mean Corpuscular Hemoglobin 26 pg (27-31); Mean Corpuscular Volume 77 fL (80-97); Mean Platelet Volume 7.8 fL (7.4-10.4); Platelet Count 309 10^3/uL (150-450); Red Blood Count 4.72 10^6 /uL (3.70-4.87); Red Cell Distribution Width 17 % (10-15); White Blood Count 8.2 10^3/uL (3.5-10.8)
[2020-10-28 05:01] LABS: Calcium 9.4 mg/dL (8.6-10.3); EGFR African American 126.7 (>60); EGFR Non-African American 104.7 (>60); Potassium 3.4 mmol/L (3.5-5.0)
[2020-10-28] MEDS: metroNIDAZOLE IV 500 MG/100ML 500 MG/100 ML BAG IVPB SCH ×3 (07:18→21:50)
[2020-10-28] MEDS ORDERED: Potassium Chlor 20 meq TAB.ER PO ONE (07:43)
[2020-10-28] MEDS: Insulin GLARGINE 100 un/ml 10 ml VIAL SUBCUT SCH (09:17)
[2020-10-28] MEDS ORDERED: PEG 3000 GI LAVAGE 1 GALLON PO ONE (09:48)
[2020-10-28] MEDS ORDERED: NS 0.9% 1000 ml BAG 1,000 ML IV SCH (14:45)
[2020-10-28 14:51] LABS: Hematocrit 37 % (35-47); Hemoglobin 12.2 g/dL (12.0-16.0)
[2020-10-28] MEDS ORDERED: Lorazepam PYXIS KEY PRN (17:36)
[2020-10-28] MEDS ORDERED: Morphine 2 MG/ML SYRINGE ONE (17:39)
[2020-10-28] MEDS: Morphine 2 MG/ML SYRINGE IV PRN ×2 (17:41→21:50)
[2020-10-28] MEDS: Enoxaparin 40 MG/0.4 ML SYR SUBCUT SCH (18:02)
[2020-10-28] MEDS: LORazepam 2 mg VIAL 1 ml IV PUSH PRN (18:51)
[2020-10-28] MEDS: cefTRIAXone 2 GM ADDV.VIAL 2 GM in NS 0.9% 100 ml BAG 100 ML IV SCH (20:22)
[2020-10-29] MEDS: Morphine 2 MG/ML SYRINGE IV PRN ×5 (03:43→22:54)
[2020-10-29] MEDS: metroNIDAZOLE IV 500 MG/100ML 500 MG/100 ML BAG IVPB SCH ×3 (05:26→21:55)
[2020-10-29 05:45] LABS: ABS Basophils 0.1 10^3/ul (0-0.2); ABS Monocytes 1.2 10^3/ul (0-0.8); Eosinophil % 0.2 %; Hematocrit 37 % (35-47); Hemoglobin 12.2 g/dL (12.0-16.0); Lymphocyte % 6.1 %; Mean Corpuscular HGB Conc 33 g/dL (31-36); Mean Corpuscular Hemoglobin 26 pg (27-31); Mean Corpuscular Volume 77 fL (80-97); Mean Platelet Volume 7.8 fL (7.4-10.4); Platelet Count 338 10^3/uL (150-450); Red Blood Count 4.74 10^6 /uL (3.70-4.87); Red Cell Distribution Width 17 % (10-15); White Blood Count 16.3 10^3/uL (3.5-10.8)
[2020-10-29 06:01] LABS: Calcium 9.2 mg/dL (8.6-10.3); EGFR African American 112.6 (>60); EGFR Non-African American 93.1 (>60); Potassium 3.3 mmol/L (3.5-5.0)
[2020-10-29] MEDS ORDERED: Potassium Chlor 20 meq TAB.ER PO ONE (07:04)
[2020-10-29] MEDS: Insulin GLARGINE 100 un/ml 10 ml VIAL SUBCUT SCH (09:20)
[2020-10-29] MEDS ORDERED: Enoxaparin 40 MG/0.4 ML SYR SUBCUT SCH (13:30)
[2020-10-29] MEDS ORDERED: NS 0.9% 1000 ml BAG 1,000 ML IV SCH (14:00)
[2020-10-29] MEDS ORDERED: Morphine 2 MG/ML SYRINGE IV PRN (17:07)
[2020-10-29] MEDS ORDERED: Morphine 2 MG/ML SYRINGE ONE (17:11)
[2020-10-29] MEDS: D5W 1/2 NS KCl 20 meq 1000 ml 1,000 ML IV SCH (17:35)
[2020-10-29] MEDS: LORazepam 2 mg VIAL 1 ml IV PUSH PRN (18:10)
[2020-10-29] MEDS: cefTRIAXone 2 GM ADDV.VIAL 2 GM in NS 0.9% 100 ml BAG 100 ML IV SCH (20:51)
[2020-10-30] MEDS: Morphine 2 MG/ML SYRINGE IV PRN ×3 (01:12→05:18)
[2020-10-30] MEDS: metroNIDAZOLE IV 500 MG/100ML 500 MG/100 ML BAG IVPB SCH (05:19)
[2020-10-30 05:50] LABS: ABS Lymphocytes 1.2 10^3/ul (1.0-4.8); ABS Monocytes 1.1 10^3/ul (0-0.8); ABS Neutrophils 13.6 10^3/ul (1.5-7.7); Hematocrit 39 % (35-47); Hemoglobin 13.2 g/dL (12.0-16.0); Lymphocyte % 7.5 %; Mean Corpuscular HGB Conc 33 g/dL (31-36); Mean Corpuscular Hemoglobin 26 pg (27-31); Mean Corpuscular Volume 77 fL (80-97); Mean Platelet Volume 7.8 fL (7.4-10.4); Platelet Count 381 10^3/uL (150-450); Red Blood Count 5.09 10^6 /uL (3.70-4.87); Red Cell Distribution Width 17 % (10-15)
[2020-10-30 06:01] LABS: Calcium 9.7 mg/dL (8.6-10.3); EGFR African American 96.3 (>60); EGFR Non-African American 79.6 (>60); Potassium 4.6 mmol/L (3.5-5.0)
[2020-10-30] MEDS ORDERED: Bupivacaine 0.25% SDV 30 ML ONE (06:26)
[2020-10-30] MEDS ORDERED: Iohexol 180 (CONTRAST) 10 ML SDV IV ONE (06:26)
[2020-10-30] MEDS ORDERED: Propofol 10 MG/ML 20 ML BTL ONE (07:02)
[2020-10-30] MEDS ORDERED: Lidocaine 2% PF 5 ML VIAL ONE (07:02)
[2020-10-30] MEDS ORDERED: Ketamine HCL 50 mg/ml 10 ml VIAL (500 MG) ONE (07:02)
[2020-10-30] MEDS ORDERED: fentaNYL 250 mcg/5 ml 50 MCG/ML 5 ml VIAL (250 MCG) ONE (07:02)
[2020-10-30] MEDS ORDERED: Rocuronium 50 mg VIAL 10 mg/ml 5 ml VIAL (50 mg) ONE (07:03)
[2020-10-30] MEDS ORDERED: ceFAZolin 2 GM PREMIX 2 GM/50 ML BAG ONE (07:10)
[2020-10-30] MEDS ORDERED: Prochlorperazine 5 mg/ml 2 ml VIAL (10 mg) IV PRN (07:16)
[2020-10-30] MEDS ORDERED: Naloxone 0.4 mg VIAL 0.4 mg/ml 1 ml VIAL IV PRN (07:16)
[2020-10-30] MEDS ORDERED: diPHENhydraMINE IV 50 MG/ML 1 ml VIAL (BENADRYL) IV PRN (07:16)
[2020-10-30] MEDS ORDERED: HYDROmorphone 1 MG/1 ML SYRINGE IV PRN (07:16)
[2020-10-30] MEDS: Insulin GLARGINE 100 un/ml 10 ml VIAL SUBCUT SCH (07:17)
[2020-10-30] MEDS ORDERED: EPHEDrine (Pressors) 50 MG/ML VIAL ONE (07:41)
[2020-10-30] MEDS ORDERED: Ondansetron 4 mg VIAL 2 MG/ML 2 ml VIAL ONE (08:26)
[2020-10-30] MEDS ORDERED: Sugammadex 500 MG/5 ML 5 ml VIAL IV PUSH ONE (08:26)
[2020-10-30] MEDS: LORazepam 2 mg VIAL 1 ml IV PUSH PRN (11:10)
[2020-10-30 11:54] VITALS: BP 142/46
[2020-10-30] MEDS: D5W 1/2 NS KCl 20 meq 1000 ml 1,000 ML IV SCH (11:59)
== END 2020-10-30 13:45 | disposition short-term general hospital (02) | DRG 698 ==
LOC: ED 09:40 → SSU 15:47
PROVIDERS: ADMIT Hospitalist; ATTEND Internal Medicine